=== PATIENT | female | born 1995 | race African-American/Black ===

== ENCOUNTER 2019-04-12 | Emergency (ER) | payer SELFPAY ==
[~2019-04-12] MED LIST: BIRTH CONTROL; BUSPAR10 M1 PO; CIPROFLOXACN500 MG PO; FLONASE NASAL50 MCG; PAROXETINE10 MG PO; SINGULAIR PO; VISTARIL 50MG C50 M1 PO; XYZAL5 MG PO; ZYRTEC10 MG PO
[2019-04-12] MEDS ORDERED: TAM75CAP PO (20:12)
== END 2019-04-12 20:25 | disposition home or self-care (01) | DRG 195 ==
DX: J10.1 Influenza due to other identified influenza virus with other respiratory manifestations (principal)

== ENCOUNTER 2019-04-30 | Emergency (ER) | payer SELFPAY ==
[~2019-04-30] MED LIST changes: +TAM75CAP PO
[2019-04-30 02:18] LABS: URINE BILIRUBIN - DIPSTICK NEGATIVE (NEGATIVE); URINE BLOOD DIPSTICK NEGATIVE (NEGATIVE); URINE COLOR YELLOW; URINE GLUCOSE - DIPSTICK NEGATIVE (NEGATIVE); URINE KETONE NEGATIVE (NEGATIVE); URINE LEUK ESTERASE TRACE (NEGATIVE); URINE NITRITE - DIPSTICK NEGATIVE (Negative); URINE PH 5.5 (4.5-8.0); URINE PROTEIN - DIPSTICK NEGATIVE (NEG-TRACE); URINE SPECIFIC GRAVITY >=1.030; URINE UROBILINOGEN - DIPSTICK 0.2 E.U./dL (0.2)
[2019-04-30 02:21] LABS: HEMATOCRIT 36.5 % (37.0-47.0); HEMOGLOBIN 11.7 g/dl (12.0-16.0); IMMATURE GRANULOCYTES 0.2 % (0.0-5.0); MEAN CORPUSCULAR HGB 28.5 pG CALC (26.0-32.0); MEAN CORPUSCULAR HGB CONC 32.1 g/L CALC (32.0-36.0); NEUT# 3.22 thou/uL (2.00-7.15); RED BLOOD COUNT 4.1 mill/uL (4.20-5.60); RED CELL DISTRI WIDTH 13.8 % (11.5-15.5)
[2019-04-30 02:34] LABS: ALBUMIN 3.7 g/dL (3.2-5.0); ALKALINE PHOSPHATASE 72 u/l (38-126); AMYLASE 62 u/l (30-110); ANION GAP 10 (6-22 (CALC)); BILIRUBIN, TOTAL 0.4 mg/dL (0.0-1.4); BUN 11 mg/dL (7-17); BUN/CREATININE RATIO 17 (12-20 (CALC)); CARBON DIOXIDE 26 mmol/l (22-30); CHLORIDE 106 mmol/l (95-108); CREATININE 0.7 mg/dL (0.5-1.0); GFR > 60 ML/MIN (>=60 (CALC)); GFR FOR AFR.AMER. > 60 ML/MIN (>=60 (CALC)); LIPASE 98 u/l (23-300); POTASSIUM 3.5 mmol/l (3.5-5.1); SGOT/AST 26 u/l (14-36); SODIUM 138 mmol/l (137-146); TOTAL PROTEIN 6.8 g/dL (6.3-8.2)
[2019-04-30] MEDS ORDERED: MIRALAX3350 N1 PO (02:53)
== END 2019-04-30 03:42 | disposition home or self-care (01) | DRG 392 ==
PROVIDERS: Family Medicine
DX: K59.00 Constipation, unspecified (principal)